=== PATIENT | male | born 1940 | race African-American/Black ===

== ENCOUNTER 2020-07-15 13:41 | Emergency (ER) | payer MEDICARE, MEDICAID ==
[~2020-07-15] VITALS: Ht 180.3 cm; Wt 84.0 kg
[2020-07-15] MEDS: SODIUM CHLORIDE 0.9% 1000ML BAG (SEPSIS BOLUS) IV ONE (15:09)
[2020-07-15] MEDS: ACETAMINOPHEN 325MG TABLET PO ONE (15:10)
[2020-07-15] MEDS: PIPERACILLIN/TAZ 3.375G PREMIX 50 ML IV ONE (15:20)
[2020-07-15 15:21] LABS: BASOPHILS % 0.3 % (0.0-2.0); EOSINOPHILS % 1.2 % (0.0-5.0); HEMATOCRIT. 33.9 % (42.0-52.0); HEMOGLOBIN. 11.2 g/dL (14.0-18.0); LYMPHOCYTES % 10.8 % (20.0-50.0); MEAN CORPUSCULAR HEMOGLOBIN 28.3 pg (28.0-32.0); MEAN CORPUSCULAR VOLUME 85.9 fL (80.0-94.0); MEAN PLATELET VOLUME 6.8 fl (7.4-10.4); MONOCYTES % 6.8 % (2.0-8.0); NEUTROPHILS % 80.9 % (40.0-76.0); PLATELET 313 x1000/uL (130-400); RED BLOOD CELL COUNT 3.95 mill/uL (4.7-6.1); RED CELL DISTRIBUTION WIDTH 15.4 % (11.6-14.6)
[2020-07-15 15:29] LABS: INR 1.1; PROTHROMBIN TIME 11.4 sec (9.6-11.0)
[2020-07-15 15:33] LABS: CHLORIDE 107 mEq/L (98-107)
[2020-07-15] MEDS: VANCOMYCIN 1 G PREMIX 200 ML IV ONE (17:00)
[2020-07-15 20:45] LABS: CLARITY URINE CLEAR (CLEAR); COLOR URINE YELLOW (YELLOW); KETONES URINE NEGATIVE (NEGATIVE); LEUKOCYTE ESTERASE URINE NEGATIVE (NEGATIVE); NITRITE URINE NEGATIVE (NEGATIVE); OCCULT BLOOD URINE NEGATIVE (NEGATIVE); PH URINE 5.5 (4.5-8.0); PROTEIN URINE TRACE (NEGATIVE); SPECIFIC GRAVITY URINE 1.014 (1.005-1.030); UROBILINOGEN URINE 0.2 E.U./dL (0.2-1.0)
[2020-07-15 23:12] VITALS: BP 149/80
== END 2020-07-15 23:22 | disposition short-term general hospital (02) ==
LOC: ER 13:55 → CANBEDREQ 23:34
DX: S32.010A Wedge compression fracture of first lumbar vertebra, initial encounter for closed fracture (principal); S22.41XA Multiple fractures of ribs, right side, initial encounter for closed fracture; S09.8XXA Other specified injuries of head, initial encounter; M25.551 Pain in right hip; W01.198A Fall on same level from slipping, tripping and stumbling with subsequent striking against other object, initial encounter; Y93.01 Activity, walking, marching and hiking; Y92.512 Supermarket, store or market as the place of occurrence of the external cause; I10 Essential (primary) hypertension
CPT/HCPCS: 36415; 70450; 71045; 71250; 72125; 72170; 80053; 81003; 83605; 83690; 84145; 84484; 85025; 85610; 86850; 86900; 86901; 87040; 87086; 87804; 93005; 96365; 96367; 99285; J2543; J3370; J7030